=== PATIENT | male | born 1945 | race Hispanic/Latino ===

== ENCOUNTER 2017-01-29 07:32 | Day surgery (SDC) | payer MEDICARE, OTHER ==
[2017-01-29] MEDS ORDERED: Bupivacaine 0.5% Inj(30mL) ONE (07:53)
[2017-01-29] MEDS ORDERED: EPINEPHrine 1 mg/ml (1:1000) Inj ONE (07:53)
[2017-01-29] MEDS ORDERED: Lidocaine 1% Inj (20ml) ONE (07:53)
[2017-01-29] MEDS ORDERED: methylPREDNISolone Depo 80 mg/ml Inj ONE (07:53)
[2017-01-29 08:05] VITALS: BMI 30.8
[2017-01-29] MEDS ORDERED: Lactated Ringer's 1,000 ML IV ONE ×2 (08:19→13:38)
[2017-01-29] MEDS ORDERED: Ropivacaine 0.5% 30ML IV ONE (08:47)
[2017-01-29] MEDS ORDERED: Propofol 10 mg/ml Inj (20 ML) ONE ×2 (08:48→08:49)
[2017-01-29] MEDS ORDERED: Succinylcholine 200 mg/10 ml Inj IV ONE (08:48)
[2017-01-29] MEDS ORDERED: Midazolam 2 MG/2 ML VIAL ONE (09:20)
[2017-01-29] MEDS ORDERED: Rocuronium 10 mg/ml (5 ml) ONE (10:19)
[2017-01-29] MEDS ORDERED: Desflurane Inhalation Anesthetic Liq (240 ml) ONE (10:25)
[2017-01-29] MEDS ORDERED: Lidocaine 1% Inj (20ml) INFIL ONE (10:49)
[2017-01-29] MEDS ORDERED: methylPREDNISolone Depo 80 mg/ml Inj IM ONE (12:35)
[2017-01-29] MEDS ORDERED: Bupivacaine 0.5% 50 ML IJ ONE (12:35)
[2017-01-29] MEDS ORDERED: Neostigmine Methylsulfate 2 MG/2 ML ML IV ONE (12:36)
[2017-01-29] MEDS ORDERED: HYDROmorphone 0.5 mg/0.5 ml ISec IVP PRN (13:01)
--- NOTE | 2017-01-29 13:10 | PCM.SURG1 ---
Surgeon's Initial Post Op Note - Surgeon's Notes Surgeon: Allie Bend Sorter: ROSSY Junior Type of Anesthesia: General Endo, Spinal, Block Regional Anesthesia Administered By: DR Mcdonnell Pre-Operative Diagnosis: foreign body ( dislodged anchor) subacromial space L shoulder Operative Findings: foreingn body. tear glenoid labrum. sevre osteoarthritis. tear rotator cuff Post-Operative Diagnosis: a/c joint arthropathy. subacromial impineg,ment. bursitis subacromial space. remainder as above Operation Performed: Repair L rotator cuff. arthroscopic partial distal clavicu ;lectomy. arthosacopic labral repair. arthroscopic removal foreign body. arthoscopic acromioplasty. athroscopic debridemnt/lysis of adhesisons in subacromial sdpace Specimen/Specimens Removed: bone/synovium Estimated Blood Loss: EBL {In ML}: 20 Blood Products Given: N/A Drains Used: No Drains Post-Op Condition: Good Date of Surgery/Procedure: 01/29/17 Time of Surgery/Procedure: 10:50 (time in room/anaesthesia indcution time 10 AM)
--- NOTE | 2017-01-29 16:01 | RAD ---
PROCEDURE: Left shoulder single-view HISTORY: s/p left arthroscopy COMPARISON: None TECHNIQUE: Single-view AP FINDINGS: No gross abnormalities identified on this single view examination. Postoperative findings apparent left humeral head. IMPRESSION: No acute findings related to/accounting for the clinical presentation.
[2017-01-29 16:10] VITALS: RESP 18
[2017-01-29 17:12] VITALS: BP 143/94; PULSE 93; TEMP 97.7; O2SAT 95
--- NOTE | 2017-01-29 19:59 | PCM.OP ---
Operative Report - Operative Report Date of Surgery/Procedure: 01/29/17 Time of Surgery/Procedure: 10:50 (time in room 10AM/anesthesia indcution time 10 AM) Surgeon: Allie Floor Molder: ROSSY Figueredo Anesthesia/Sedation: GETA/regional. Dr Mcdonnell Pre-Operative Diagnosis: Painful L shoulder- with dislodgment of suture anchor. Ostearthrits L shoulder Post-Operative Diagnosis: Tear Rotator cuff L shoulder. Tear glenoid labrum L shoulder. A/C joint arthritis. Foreign body subacromial space. adhesions/ bursitis subacromial space Indication for Surgery: pain and rstricted ROM L shoulder Operative Findings: foreign body- suture anchor in subacromial space. severe opsteoarthitis L shoulder. tear glenoid labrum. tear L rotator cuff. A/c Joint arthropathy. bursitis/adhesions in subacromial space Procedure/Operation Description: Repair L rotator cuff. Arthroscopic partial distal claviculectomy. arthroscopic labral repair. extensive debridement glenohumeral joint. removal foreign body from subacromial space. arthroscopic lysis of adhesions and bursectomy. dictating operative procedure for pt Ayaan Jarrell: after obtaining informed consent; after having identified side, site and procedure in a critical pause/timeout after the satisfactory induction of general and regional anesthesia by Dr. Mcdonnell, the patient identified as Joshua Jarrell is placed in the modified odbbs position using the Spider positioner. After sterilely prepping and draping the left upper extremity,, the topographic anatomy of the shoulder is described and marked. At a point approximately 1 fingerbreadth inferior to the lateral aspect of the of the acromion and 1 fingerbreadth medially the joint is insufflated with 10 mL of 1% lidocaine without epinephrine. Using #11 blade followed by spreasding, followed b y introduction the blunt trocar, the arthroscope is introdcued. triangulation was accomplished using a #18-gauge spinal needle followed by a #11 blade followed by introduction of the Wissinger anahi. The anterior cannula was placed. An extensive debridement of the Glenohumeral joint is completed. There is severe osteoarthritis. There is found to be a tear withseparation of the glenoid labrum. a posterolateral portal was accomplishedusing the routine gauge spinal needle followed by #11 blade.at this point thorough debridement Of the glenohumeral joint is accomplished. This accomplished using the arthroscopic shaver and the arthroscopic wand At this point the interval between the labrumand the glenoid bone is developed. Using using the lasso wand was placed around the labral tear and thenitinol wire was retrieved posterolaterally. The fiber tape was brought out anteriorly. Proximal fixation is accomplished by drilling and loading the peek anchor-the peek anchors impacted and the labrum is repaired. Glenohumeral joint debridement is completetd. At this point attention was Turned to the subacromial space.. A dislodged anchor is found in the subacromial space with massive adhesions. At this point using the arthroscopic shaver thorough debridement and lysis of adhesions in the subacromial space is accomplished. The rotator cuff was identified, and there is found to be retear. Using a combination of the arth arthroscopic grasper. The foreign body/suture anchor is removed. At this point in time with the arthroscope posteriorly the rotator cuff tear was mobilized. A final portasl is accomplioshed using a number 11 blade followed by spreading followed by introdcution ROTATOR CUFFf the blunt trocar. At this point with the rotator cuff grasped, the surtues are brought out the lateral portal. At this point the sutures are shuttled thru the superior portal. The anchor is loaded, and with the arm in abdcution and internal rotation the cuff is repaired. It shoud be noted this is a temprotizing procedure, and this was discussed with the patient. B The patient hyas sevre rotator cuff arthropathy and will require shoulder replacememt arthroplasty at some point he is awre of this.. aafter having repaired the rotator cuff, attention was now turned to The acromial clavicular joint.. Using an arthroscopic bur A partial distal claviculectomy is accomplished. This includes the distal 1cm of the clavicle and the articular surface. After this, an acromioplasty is accomplished using the arthroscopic larisa as well. bleeding points are controlled using the carla serfas wand. thorought irrigation follows and closure of the portals with vicryl and nylon. Compression dressing and shoulder gunslinger abdujction splint is employed. this is the end of nthe operativ e note on pt Ayaan Jarrell. Pt is transferred from OR table to stretcher having tolerated procedure well Estimated Blood Loss: 20cc Blood Replaced: 0 Sponge/Instrument Count: correct Drains: 0 Complications: none Specimen: cartilage/synovium/tendon/suture anchor Discharge & Condition: stable discharge condition
== END 2017-01-29 17:15 | disposition home or self-care (01) ==
LOC: H.OPSURG 07:32
PROVIDERS: ATTEND Orthopaedic Surgery
DX: M75.102 Unspecified rotator cuff tear or rupture of left shoulder, not specified as traumatic (principal); M19.012 Primary osteoarthritis, left shoulder; M75.52 Bursitis of left shoulder; M75.42 Impingement syndrome of left shoulder
CPT/HCPCS: 29822; 29824; 29826; 29827; 73020; 88304; J0171; J0330; J0690; J1040; J2001; J2250; J2704; J2710; J3010; J7030; J7120